=== PATIENT | male | born 1995 | race Caucasian/White ===

== ENCOUNTER 2018-05-19 14:01 | Emergency (ER) | payer BC, OTHER ==
[~2018-05-19] VITALS: Ht 182.9 cm; Wt 136.1 kg
[2018-05-19] MEDS ORDERED: DIAZEPAM INJ 5 MG/ML 2 ML IV ONE (14:30)
[2018-05-19] MEDS ORDERED: MORPHINE SULFATE 5 MG/ML VIAL IV ONE (14:30)
[2018-05-19] MEDS ORDERED: METHYLPREDNISOLONE SOD SUCC 125 MG/2ML VIAL IV ONE (14:30)
[2018-05-19] MEDS ORDERED: MORPHINE SULFATE 2 MG/ML SYR IV ONE (15:00)
[2018-05-19] MEDS ORDERED: MORPHINE SULFATE INJ 4 MG/ML INJ IV ONE (15:00)
--- NOTE | 2018-05-19 15:42 | Diagnostic Imaging Report ---
EXAM: CT Pelvis WITHOUT contrast INDICATION: Fall COMPARISON: None. TECHNIQUE: Pelvis was scanned utilizing a multidetector helical scanner without the use of IV contrast. Coronal and sagittal reformations were obtained. IV CONTRAST: None COMPLICATIONS: None RADIATION DOSE: Total DLP: 1198 mGy*cm Estimated effective dose: (DLP x 0.015 x size factor) mSv CTDIvol has been reviewed. It is below the limits set by the Radiation Protocol Committee (RPC). Appropriate CT dose reduction techniques were utilized. FINDINGS: Urinary bladder is unremarkable. No pelvic free fluid or adenopathy. Visualized bowel and appendix unremarkable. No fracture identified. IMPRESSION: 1. No acute findings. Signed by: Dr. Juanjose Cheung MD on 05/19/2018 3:38 PM
[2018-05-19] MEDS ORDERED: DIAZEPAM 5 MG TAB PO ONE (16:00)
--- NOTE | 2018-05-19 16:00 | Diagnostic Imaging Report ---
Exams: Head and cervical spine CTs without IV contrast History: Pain, trauma, fall Comparison studies: None Technique: Axial images were obtained from the brain and cervical spine. Coronal and sagittal images reconstructed from the axial data. Dose modulation, iterative reconstruction, and/or weight based adjustment of the mA/kV was utilized to reduce the radiation dose to as low as reasonably achievable. Intravenous contrast: None Findings: Head CT: Scalp: No abnormalities. Bones: No fractures, blastic or lytic lesions. Extra-axial spaces: No masses. No fluid collections. Brain sulci: Appropriate for age. Ventricles: Normal in size and configuration. No hydrocephalus. Parenchyma: No abnormal densities. No masses, hemorrhage, acute or chronic vascular insults. Sellar/suprasellar region: No abnormalities. Craniocervical junction: The foramen magnum is patent. No Chiari one malformation. Cervical spine CT: Fractures: None. Soft tissues: No gross abnormalities. Atlantoaxial articulation: Intact. Alignment: Mild reversal the usual cervical cord are curvature may be scheduled by patient position or possibly related to muscle spasm. Cervicomedullary junction: No abnormalities. The foramen magnum is patent. Vertebrae: No infection or neoplasm. Degenerative changes: None. Incidental findings: Minimal right frontoethmoidal sinus inflammatory changes with opacified anteromedial frontoethmoidal cell. IMPRESSION: Head CT: No intracranial abnormalities or fracture. Cervical spine CT: 1. No cervical spine fracture or subluxation 2. With note, cannot adequate evaluate ligament, spinal cord and or vascular abnormalities on the basis of this examination. Signed by: Dr. Clemente Giang M.D. on 05/19/2018 3:57 PM
--- NOTE | 2018-05-19 16:05 | Diagnostic Imaging Report ---
History: Low back pain Comparison studies: None Technique: Axial images were obtained through the lumbar spine. Coronal and sagittal images reconstructed from the axial data. Dose modulation, iterative reconstruction, and/or weight based adjustment of the mA/kV was utilized to reduce the radiation dose to as low as reasonably achievable. Intravenous contrast: None Findings: Number of non-rib bearing vertebral bodies: 5 Alignment: Normal lordosis. No subluxations. No scoliosis. Soft tissues: No gross acute abnormalities. Paraspinal muscles: Unremarkable. Sacroiliac joints: Mild degenerative changes on the left with mild sclerosis and subchondral cyst formation along the left sacral articulation. Vertebrae: No fractures, infection or neoplasm. Degenerative changes: Disc height is maintained. Patent canal and foramina. IMPRESSION: 1. No acute abnormalities. 2. Specifically, no lumbar spine fracture or subluxation. Signed by: Dr. Clemente Giang M.D. on 05/19/2018 4:01 PM
--- NOTE | 2018-05-19 16:13 | Diagnostic Imaging Report ---
EXAM: KNEE RIGHT THREE VIEWS DATE: 05/19/2018 3:49 PM INDICATION: ^pain s/p fall ^[id number] ^1550 ^Y fall COMPARISON: None FINDINGS: No fracture or subluxation. No effusion. IMPRESSION: No acute findings. Signed by: Dr. Juanjose Cheung MD on 05/19/2018 4:10 PM
--- NOTE | 2018-05-19 16:17 | Diagnostic Imaging Report ---
EXAM: LOWER LEG RIGHT DATE: 05/19/2018 3:49 PM INDICATION: ^pain s/p fall ^[id number] ^1550 ^Y COMPARISON: None FINDINGS: No fracture or subluxation. Soft tissues unremarkable. IMPRESSION: No acute findings. Signed by: Dr. Juanjose Cheung MD on 05/19/2018 4:14 PM
[2018-05-19 17:27] VITALS: BP 147/83
== END 2018-05-19 17:50 | disposition home or self-care (01) ==
LOC: ER 14:01
DX: G89.11 Acute pain due to trauma (principal); S00.83XA Contusion of other part of head, initial encounter; M54.2 Cervicalgia; M25.551 Pain in right hip; M25.561 Pain in right knee; M79.661 Pain in right lower leg; M54.5 Low back pain; W10.8XXA Fall (on) (from) other stairs and steps, initial encounter; Y99.0 Civilian activity done for income or pay
CPT/HCPCS: 70450; 72125; 72131; 72192; 73562; 73590; 99284; J2270; J2930; J3360